=== PATIENT | female | born 1950 | race Caucasian/White ===

== ENCOUNTER 2019-08-07 09:00 | Inpatient (IN) ==
[2019-07-31 11:44] LABS: URINE SOURCE CLEAN CATCH
[2019-07-31 11:48] LABS: BASO# 0.08 X1000 (0.0-0.2); BASO% 0.8 % (0.0-0.8); EOS# 0.25 X1000 (0.0-0.7); EOS% 2.6 % (0.0-10.0); HEMATOCRIT 41.1 % (37.0-47.0); IMM GRAN# 0.04 X1000 (0.0-0.04); IMM GRAN% 0.4 % (0.0-0.5); LYMPH# 2.44 X1000 (1.2-3.4); LYMPH% 25.1 % (20.5-51.1); MCH 29.7 PG (27-31); MCHC 31.6 g/dL (33-37); MCV 94.1 FL (81-99); MONO# 0.63 X1000 (0.11-0.59); MONO% 6.5 % (1.7-9.3); NEUT# 6.28 X1000 (1.4-6.5); NEUT% 64.6 % (42.2-75.2); PLT 366 X1000 (130-400); RBC 4.37 XMIL (4.2-5.4); RDW 14.7 % (11.5-14.5); WBC 9.72 X1000 (4.8-10.8)
[2019-07-31 11:49] LABS: BILIRUBIN URINE NEGATIVE (NEGATIVE); BLOOD URINE SMALL (NEGATIVE); COLOR YELLOW; GLUCOSE URINE NEGATIVE (NEGATIVE); KETONE URINE NEGATIVE (NEGATIVE); LEUKOCYTES URINE NEGATIVE (NEGATIVE); NITRITE URINE NEGATIVE (NEGATIVE); PROTEIN URINE NEGATIVE (NEGATIVE); SP GRAVITY URINE 1.015; TURBIDITY URINE CLEAR (CLEAR); UR EPITHELIAL CELLS <10 /HPF (<10); URINE BACTERIA NEGATIVE /HPF; URINE RBC <10 /HPF (<10); URINE WBC <10 /HPF (<10); UROBILINOGEN URINE NORMAL (NORMAL)
[2019-07-31 11:52] LABS: INR 1.18; PROTIME 15.2 Seconds (11.0-16.0)
[2019-07-31 11:53] LABS: PTT 44.1 Seconds (22.3-41.8)
[2019-07-31 12:06] LABS: HEMOGLOBIN A1C 5.7 % (4.8-6.0)
[2019-07-31 12:14] LABS: AGAP 14; BUN 12 mg/dL (8-22); CALCIUM 8.9 mg/dL (8.8-10.2); CHLORIDE 103 mmol/L (98-107); COSMO 284; CREATININE 0.6 mg/dL (0.5-0.9); ESTIMATED GFR > 60; GLUCOSE 94 mg/dL (70-104); POTASSIUM 4.1 mmol/L (3.5-5.1); SODIUM 143 mmol/L (136-145); TCO2 26 mmol/L (25-35)
--- NOTE | 2019-07-31 12:14 | EKG Report ---
Test Performed on : 07/31/2019 11:30:13 AM Test Reason : PAT Blood Pressure : / mmHG Vent. Rate : 089 BPM Atrial Rate : 089 BPM P-R Int : 152 ms QRS Dur : 090 ms QT Int : 368 ms P-R-T Axes : 062 046 062 degrees QTc Int : 447 ms Normal sinus rhythm. Normal ECG When compared with ECG of 10-AUG-2018 08:37, premature atrial complexes. are no longer present Confirmed by Wen ABREU, Shukri Leal ([id number]) on 07/31/2019 1:21:47 PM
[2019-08-07] MEDS ORDERED: REGLAN ONE (13:06)
[2019-08-07] MEDS ORDERED: COLACE ONE (13:06)
[2019-08-07] MEDS ORDERED: KEFZOL 1 GM/D5W 2 GM/100 ML IVPB ONE (13:06)
[2019-08-07] MEDS ORDERED: PEPCID ONE (13:06)
[2019-08-07] MEDS ORDERED: LYRICA ONE (13:06)
[2019-08-07] MEDS ORDERED: LR 1,000 ML ONE (13:07)
[2019-08-07] MEDS ORDERED: BENADRYL CREAM TOP PRN (13:56)
[2019-08-07] MEDS ORDERED: DURAMORPH ONE (14:26)
[2019-08-07] MEDS ORDERED: VANCOMYCIN ONE (14:27)
[2019-08-07] MEDS ORDERED: EXPAREL 1.3% ONE (14:27)
[2019-08-07] MEDS ORDERED: SODIUM CHLORIDE 0.9% ONE (14:27)
[2019-08-07] MEDS ORDERED: CYKLOKAPRON 1,000 MG/NS 2,000 MG/200 ML IVPB ONE (14:27)
[2019-08-07] MEDS ORDERED: TORADOL ONE (14:27)
[2019-08-07] MEDS ORDERED: SENSORCAINE 0.25%/EPI 1:200,000 ONE (14:27)
[2019-08-07] MEDS ORDERED: QUELICIN (DOSE) ONE ×2 (14:31→14:33)
[2019-08-07] MEDS ORDERED: DIPRIVAN 1% ONE (14:31)
[2019-08-07] MEDS ORDERED: XYLOCAINE-MPF 2% ONE (14:31)
[2019-08-07] MEDS ORDERED: FENTANYL ONE (14:31)
[2019-08-07] MEDS ORDERED: SUFENTA ONE (15:49)
[2019-08-07] MEDS ORDERED: LABETALOL (DOSE) ONE (15:52)
[2019-08-07] MEDS ORDERED: OFIRMEV 1000 MG/ISOTONIC SOLN 1,000 MG/100 ML BOTTLE ONE (16:50)
[2019-08-07] MEDS ORDERED: NS 1,000 ML ONE (17:26)
[2019-08-07 17:30] LABS: URINE SOURCE CATH
[2019-08-07 17:39] LABS: BILIRUBIN URINE NEGATIVE (NEGATIVE); BLOOD URINE TRACE (NEGATIVE); COLOR STRAW; GLUCOSE URINE NEGATIVE (NEGATIVE); KETONE URINE NEGATIVE (NEGATIVE); LEUKOCYTES URINE NEGATIVE (NEGATIVE); NITRITE URINE NEGATIVE (NEGATIVE); PROTEIN URINE NEGATIVE (NEGATIVE); TURBIDITY URINE CLEAR (CLEAR); UROBILINOGEN URINE NORMAL (NORMAL)
[2019-08-07 17:40] LABS: UR EPITHELIAL CELLS <10 /HPF (<10); URINE BACTERIA NEGATIVE /HPF; URINE RBC <10 /HPF (<10); URINE WBC <10 /HPF (<10)
[2019-08-07] MEDS: DILAUDID ONE ×2 (17:40→17:45)
[2019-08-07] MEDS ORDERED: ZOFRAN ODT PO PRN (18:15)
[2019-08-07] MEDS ORDERED: ZOFRAN IV PRN (18:15)
[2019-08-07] MEDS ORDERED: MORPHINE IV PRN ×3 (18:15)
--- NOTE | 2019-08-07 19:29 | Diag Imaging Result Doc PS360 ---
EXAM: KNEE 1-2 VIEWS-RIGHT INDICATION: rt tka TECHNIQUE: 2 views COMPARISON: None. FINDINGS: There has been a recent right knee arthroplasty. The arthroplasty hardware is in the expected position. There is no evidence of periprosthetic fracture. Anterior skin kike and a drainage catheter are in place. IMPRESSION: Satisfactory postoperative knee. Electronically signed by Peng Sinclair 08/07/2019 7:27 PM
--- NOTE | 2019-08-07 20:47 | OPERATIVE NOTE ---
PROCEDURE DATE: 08/07/2019 PREOPERATIVE DIAGNOSIS: Degenerative joint disease, right knee. POSTOPERATIVE DIAGNOSIS: Degenerative joint disease, right knee. PROCEDURE PERFORMED: Right total knee replacement. SURGEON: Negro Lai MD. PRODUCT COORDINATOR: JOSE ALFREDO Monae. Mr. Hawkins was necessary for proper retraction and manipulation of the leg during the case. ANESTHESIA: General. COMPLICATION: None. PROCEDURE IN DETAIL: A 69-year-old female who presents for right knee replacement. Risks, benefits, and no guarantees were discussed and she is willing to proceed. She was taken to the operating room and satisfactory anesthesia obtained. The right leg was prepped and draped in usual sterile fashion. A time-out was taken to confirm operative site, procedure, and patient. The leg was wrapped with an Esmarch and tourniquet inflated to 350 mmHg. A midline incision was made over the front of the knee followed by a quad tendon sparing arthrotomy. The patella was everted and resurfaced with freehand technique. The patella was subluxed laterally and the knee flexed. An intramedullary hole made in the distal femoral and the distal femoral cutting block secured in 5 degrees of valgus. Femoral resection was made with 11 mm resection due to roughly 10 degree flexion contracture. Distal femur was sized to a size 5 Attune femoral implant. The finishing block was secured and the anterior, posterior, and chamfer cuts sequentially made. The notch was created for posterior stabilized design. Any remaining osteophytes were debrided from the femur. The knee was flexed and a PCL retractor placed behind the tibia and the tibial cutting block secured with extramedullary alignment. Tibial resection was made. The flexion extension gaps were roughly equal with a 7 mm thick spacer. Tibia was sized to a size 5 tibial tray. A trial reduction was then performed with a size 5 tibial tray, a size 5 posterior stabilized right femoral trial, and a 7 mm thick trial poly. Good range of motion and stability was noted. The patella was sized to a 35 medialized dome patella. The drill holes were placed for the patellar implant and the trial components removed. The bony surfaces were thoroughly irrigated with pulsatile lavage. Cement with a gram of vancomycin was then utilized to cement a attune size 5 rotating platform tibial base plate, a size 5 standard width posterior stabilized right femoral component and a 35 medialized dome patella. Excess cement was removed with a Haywood elevator. While the cement cured, the joint capsule was injected with Exparel for pain management and a Hemovac drain placed. The arthrotomy was then copiously irrigated with irrigant and closed over the drain. After curing the cement, a polyethylene bearing 7 mm thick was inserted in the tibial tray and the knee reduced. Final range of motion was 0 to 130 degrees with midline patellar tracking. The arthrotomy was copiously irrigated with irrigant. It was closed over the drain with #1 Vicryl in the arthrotomy, 2-0 Vicryl in the subcutaneous and skin kike on the skin edges. Sterile dressings completed the closure and the patient was recovered from anesthesia and transferred to the recovery room in stable condition. No intraoperative complications were noted. Instrument count and sponge count was correct at the time of closure. cc: Peng Lai MD
[2019-08-07] MEDS: COLACE PO SCH (21:07)
--- NOTE | 2019-08-07 21:15 | ORTHOPAEDICS PROGRESS NOTE ---
DATE: 08/07/2019 Ms. Palomino is seen in the recovery room status post total knee replacement. She is awake and alert. Vital signs are stable. Her bandage is clean and dry. She appears to be motor and sensory intact. We will plan on transferring her to the floor soon and mobilizing her later. We will plan on discharge to rehab center later this week. cc: Peng Lai MD
[2019-08-07] MEDS: KEFZOL 2 GM/D5W 2 GM/50 ML IVPB IV SCH (22:42)
[2019-08-07] MEDS: TYLENOL PO SCH (22:42)
[2019-08-08] MEDS: ULTRAM PO SCH ×6 (00:42→23:14)
[2019-08-08] MEDS: TYLENOL PO SCH ×4 (05:32→23:13)
[2019-08-08] MEDS: KEFZOL 2 GM/D5W 2 GM/50 ML IVPB IV SCH (06:30)
[2019-08-08 06:53] LABS: HEMATOCRIT 31.3 % (37.0-47.0); HEMOGLOBIN 10.1 g/dL (12.0-16.0)
[2019-08-08 07:04] LABS: AGAP 10; BUN 8 mg/dL (8-22); CALCIUM 8.3 mg/dL (8.8-10.2); CHLORIDE 107 mmol/L (98-107); COSMO 284; CREATININE 0.6 mg/dL (0.5-0.9); ESTIMATED GFR > 60; GLUCOSE 104 mg/dL (70-104); SODIUM 143 mmol/L (136-145); TCO2 26 mmol/L (25-35)
[2019-08-08] MEDS: NS 1,000 ML IV SCH ×3 (07:29→23:16)
--- NOTE | 2019-08-08 08:50 | Diag Imaging Result Doc PS360 ---
EXAM: CHEST-1 VIEW INDICATION: REHAB TECHNIQUE: One view COMPARISON: 09/04/2018 FINDINGS: There is a small nodular density at the medial right lung base. It may actually represent osteophytes rounded osteophytes rather than a lung nodule. Consider follow-up with PA and lateral radiograph. The lungs are grossly clear, otherwise. There is no discrete pleural fluid collection or pneumothorax. The cardiac silhouette is probably within normal limits accounting for magnification from AP technique. IMPRESSION: 1.Nodular density at the medial right lung base that may actually represent a bulky osteophyte projecting over this region. Consider PA and lateral radiograph follow-up. 2.No definite acute pathology, otherwise. Electronically signed by Peng Sinclair 08/08/2019 8:47 AM
--- NOTE | 2019-08-08 09:30 | ORTHOPAEDICS PROGRESS NOTE ---
DATE: 08/08/2019 Ms. Palomino is seen status post total knee replacement. At the present time, she is afebrile with stable vital signs. Bandage is clean and dry. She is motor and sensory intact. There are no signs of DVT. Will mobilize her today. Will plan on transfer to inpatient rehab when a bed is available. cc: Peng Lai MD
[2019-08-08] MEDS: ASPIRIN PO SCH (10:59)
[2019-08-08] MEDS: COLACE PO SCH ×2 (10:59→23:13)
[2019-08-08] MEDS: MOBIC PO SCH (10:59)
[2019-08-08] MEDS: PEPCID PO SCH (11:00)
[2019-08-08] MEDS: OXY IR PO PRN ×2 (11:01→16:26)
[2019-08-08] MEDS: MIRAPEX PO SCH (23:13)
[2019-08-09] MEDS: ULTRAM PO SCH ×5 (05:26→23:36)
[2019-08-09] MEDS: TYLENOL PO SCH ×4 (05:27→23:36)
[2019-08-09 06:26] LABS: HEMATOCRIT 32.2 % (37.0-47.0); HEMOGLOBIN 10.1 g/dL (12.0-16.0)
[2019-08-09] MEDS: OXY IR PO PRN ×2 (10:42→20:29)
[2019-08-09] MEDS: PEPCID PO SCH (10:44)
[2019-08-09] MEDS: COLACE PO SCH ×2 (10:44→20:30)
[2019-08-09] MEDS: MOBIC PO SCH (10:44)
[2019-08-09] MEDS: ASPIRIN PO SCH (10:44)
[2019-08-09] MEDS: LEXAPRO PO SCH (13:59)
[2019-08-09] MEDS: PRINIVIL PO SCH (14:14)
[2019-08-09] MEDS: NS 1,000 ML IV SCH ×2 (15:06→23:35)
--- NOTE | 2019-08-09 18:27 | ORTHOPAEDICS PROGRESS NOTE ---
DATE: 08/09/2019 SUBJECTIVE: The patient is seen postoperative day 2 of her right total knee arthroplasty. She reports she is doing well at this time. She states she did have some pain earlier in the day. She reports that her blood pressure had been up just slightly. She states the nurse did give her a lisinopril and her blood pressure came down. OBJECTIVE: There is good sensation of her right lower extremity. The bandages are clean and dry at this time. There are good pedal pulses. There is good capillary refill in the toes. Current vital signs have been stable. Earlier vital signs: Blood pressure was in the 190s systolic. ASSESSMENT: Degenerative joint disease, right knee, with right total knee arthroplasty. PLAN: We plan to hopefully discharge Ms. Palomino home tomorrow to inpatient rehab. She will need to follow up with us in a couple of weeks. They can remove kike in rehab in roughly 10 days. We will check back on her in the morning to see how she is doing and see if she is ready for discharge. Dictated by JOSE ALFREDO Monae for Peng Lai MD cc: JOSE ALFREDO Monae MD
[2019-08-09] MEDS: GLUCOPHAGE XR PO SCH (20:28)
[2019-08-09] MEDS: ELIQUIS PO SCH (20:29)
[2019-08-09] MEDS: MIRAPEX PO SCH (20:30)
[2019-08-10] MEDS: TYLENOL PO SCH (05:12)
[2019-08-10] MEDS: ULTRAM PO SCH (05:13)
[2019-08-10 06:36] LABS: HEMATOCRIT 29.9 % (37.0-47.0); HEMOGLOBIN 9.5 g/dL (12.0-16.0)
--- NOTE | 2019-08-10 07:58 | DISCHARGE SUMMARY ---
ADMISSION DATE: 08/07/2019 DISCHARGE DATE: 08/10/2019 ADMITTING DIAGNOSIS: Degenerative joint disease of the right knee. ADDITIONAL DIAGNOSES: 1. Diabetes. 2. History of pulmonary embolus and deep venous thrombosis. 3. History of aspiration pneumonia. 4. History of asthma. 5. Depression and anxiety. DISCHARGE DIAGNOSIS: Degenerative joint disease of the right knee. ADDITIONAL DIAGNOSES: 1. Diabetes. 2. History of pulmonary embolus and deep venous thrombosis. 3. History of aspiration pneumonia. 4. History of asthma. 5. Depression and anxiety. HISTORY AND HOSPITAL COURSE: A 69-year-old female with end-stage DJD about the right knee, presents for total knee replacement. She underwent a right knee replacement without complication. Postoperatively, she mobilized with physical therapy. She has remained afebrile. She has been started back on Eliquis for her DVT, PE history. There is some mild bleeding from the incision, which is venous due to the Eliquis. There is no hematoma or clot. Currently, she is afebrile with stable vital signs. She can be transferred to the rehab center. She needs to continue with her home medicines, as well as pain management and physical therapy. [place] can be removed in 10 days. She will follow up with me upon discharge. HOME MEDICINES: Include: 1. Ativan 1 mg every 12 hours as needed for anxiety. 2. Clindamycin 300 mg daily. 3. Crestor 10 mg daily. 4. Eliquis 5 mg currently b.i.d. 5. Glucophage tablet 1000 mg. 6. Lisinopril 20 mg daily. 7. Metformin 1000 mg daily. 8. Mirapex tablets. 9. OxyIR one to two 5 mg tablets every 3 hours as needed for pain. FOLLOWUP: She is to return to my office for any worsening signs or symptoms. cc: Peng Lai MD
[2019-08-10 08:58] VITALS: BP 125/56
[2019-08-10] MEDS ORDERED: PATIENT'S OWN MED PO SCH (09:00)
[2019-08-10] MEDS ORDERED: PRINIVIL PO SCH (09:00)
[2019-08-10] MEDS ORDERED: VITAMIN B-12 PO SCH (09:00)
[2019-08-10] MEDS ORDERED: PEPCID PO SCH (09:00)
[2019-08-10] MEDS: PRINIVIL PO SCH (10:11)
[2019-08-10] MEDS: GLUCOPHAGE XR PO SCH (10:11)
[2019-08-10] MEDS: LEXAPRO PO SCH (10:11)
[2019-08-10] MEDS: ASPIRIN PO SCH (10:11)
[2019-08-10] MEDS: ELIQUIS PO SCH (10:12)
[2019-08-10] MEDS: COLACE PO SCH (10:12)
[2019-08-10] MEDS ORDERED: CRESTOR PO SCH (11:40)
== END 2019-08-10 10:34 | DRG 470 ==
LOC: SURHOLD 12:13 → 4N 15:16
PROVIDERS: ADMIT Orthopaedic Surgery Adult Reconstructive Orthopaedic Surgery; ATTEND Orthopaedic Surgery Adult Reconstructive Orthopaedic Surgery